=== PATIENT | male | born 2000 | race Caucasian/White ===

== ENCOUNTER 2024-05-31 12:25 | Emergency (ER) | payer MEDICAID ==
[~2024-05-31] VITALS: Ht 175.3 cm; Wt 95.0 kg
[2024-05-31 12:38] VITALS: O2SAT 97
[2024-05-31 12:50] LABS: CLARITY URINE CLEAR (CLEAR); COLOR URINE YELLOW (YELLOW); GLUCOSE URINE NEGATIVE (NEGATIVE); KETONES URINE NEGATIVE (NEGATIVE); LEUKOCYTE ESTERASE URINE NEGATIVE (NEGATIVE); NITRITE URINE NEGATIVE (NEGATIVE); OCCULT BLOOD URINE NEGATIVE (NEGATIVE); PH URINE 5.5 (4.5-8.0); PROTEIN URINE NEGATIVE (NEGATIVE); SPECIFIC GRAVITY URINE 1.022 (1.005-1.030); UROBILINOGEN URINE 0.2 E.U./dL (0.2-1.0)
[2024-05-31 13:15] LABS: CHLORIDE 105 mEq/L (98-107); POTASSIUM 3.8 mEq/L (3.5-5.1); SODIUM 138 mEq/L (136-145)
[2024-05-31 13:16] LABS: CARBON DIOXIDE 25 mEq/L (21-32)
[2024-05-31 13:17] LABS: CALCIUM 10.1 mg/dL (8.7-10.4)
[2024-05-31 13:21] LABS: CREATININE 0.8 mg/dL (0.6-1.3)
[2024-05-31 13:22] LABS: GLUCOSE 103 mg/dL (70-105); UREA NITROGEN BLOOD 12 mg/dL (9-23)
[2024-05-31 13:23] LABS: ALANINE AMINOTRANSFERASE 34 IU/L (10-49); ASPARTATE AMINOTRANSFERASE 24 IU/L (<34); BILIRUBIN DIRECT 0.1 mg/dL (<=3.0)
[2024-05-31 13:24] LABS: BILIRUBIN TOTAL 0.5 mg/dL (0.1-1.0); PROTEIN TOTAL 8.1 g/dL (6.0-8.3)
[2024-05-31 13:45] LABS: BASOPHILS % 0.4 % (0.0-2.0); EOSINOPHILS % 0.9 % (0.0-5.0); HEMATOCRIT. 47.9 % (42.0-52.0); HEMOGLOBIN. 16.6 g/dL (14.0-18.0); LYMPHOCYTES % 39.6 % (20.0-50.0); MEAN CORPUSCULAR HEMOGLOBIN 29.6 pg (28.0-32.0); MEAN CORPUSCULAR HGB CONC 34.7 g/dL (31.0-37.0); MEAN CORPUSCULAR VOLUME 85.3 fL (80.0-94.0); MEAN PLATELET VOLUME 9.2 fl (7.4-10.4); MONOCYTES % 6.4 % (2.0-8.0); NEUTROPHILS % 52.7 % (40.0-76.0); PLATELET 237 x1000/uL (130-400); RED BLOOD CELL COUNT 5.61 mill/uL (4.7-6.1); RED CELL DISTRIBUTION WIDTH 12.8 % (11.6-14.6); WHITE BLOOD COUNT 9.7 x1000/uL (4.5-11.0)
[2024-05-31] MEDS ORDERED: DOXY150T8 MT (16:48)
[2024-05-31] MEDS: DOXYCYCLINE HYCLATE 100MG CAPSULE PO ONE (17:00)
[2024-05-31] MEDS: CEFTRIAXONE SODIUM 500MG VIAL IM ONE (17:00)
[2024-05-31 17:21] VITALS: BP 141/75; PULSE 89; RESP 16; TEMP 36.78072; O2SAT 99
[2024-06-01] MEDS ORDERED: DOXY100T28 MT (13:28)
== END 2024-05-31 17:35 | disposition home or self-care (01) ==
LOC: ER 12:25
DX: N53.12 Painful ejaculation (principal)
CPT/HCPCS: 80076; 80048; 81003; 83690; 85025; 86850; 86900; 86901; 36415; 96372; 99283; J0696; Z7610

== ENCOUNTER 2024-06-01 13:06 | Emergency (ER) | payer MEDICAID ==
[~2024-06-01] VITALS: Ht 167.6 cm; Wt 104.0 kg
[~2024-06-01 13:06] MED LIST: DOXY150T8 MT
[2024-06-01 13:18] VITALS: TEMP 98.5; O2SAT 99
[2024-06-01] MEDS ORDERED: DOXY100T28 MT (13:28)
[2024-06-01 13:31] VITALS: BP 116/80; PULSE 74; RESP 16; O2SAT 99
== END 2024-06-01 13:33 | disposition home or self-care (01) ==
LOC: ER 13:06
DX: N53.12 Painful ejaculation (principal)
CPT/HCPCS: 99283

== ENCOUNTER 2024-07-19 09:05 | Emergency (ER) | payer MEDICAID ==
[~2024-07-19] VITALS: Ht 167.6 cm; Wt 106.6 kg
[~2024-07-19 09:05] MED LIST changes: +DOXY100T28 MT
[2024-07-19 09:11] VITALS: BP 153/84; PULSE 76; RESP 16; TEMP 98; O2SAT 98
[2024-07-19 11:30] LABS: CLARITY URINE CLEAR (CLEAR); COLOR URINE YELLOW (YELLOW); GLUCOSE URINE NEGATIVE (NEGATIVE); KETONES URINE NEGATIVE (NEGATIVE); LEUKOCYTE ESTERASE URINE NEGATIVE (NEGATIVE); NITRITE URINE NEGATIVE (NEGATIVE); OCCULT BLOOD URINE NEGATIVE (NEGATIVE); PH URINE 5.5 (4.5-8.0); PROTEIN URINE NEGATIVE (NEGATIVE); SPECIFIC GRAVITY URINE 1.015 (1.005-1.030); UROBILINOGEN URINE 0.2 E.U./dL (0.2-1.0)
== END 2024-07-19 10:56 | disposition home or self-care (01) ==
LOC: ER 09:05
DX: N53.12 Painful ejaculation (principal)
CPT/HCPCS: 76870; 81003; 93976; 99284

== ENCOUNTER 2025-08-22 11:48 | Emergency (ER) | payer MEDICAID ==
[~2025-08-22] VITALS: Ht 167.6 cm; Wt 100.0 kg
[2025-08-22 11:54] VITALS: O2SAT 99
[2025-08-22] MEDS: IBUPROFEN 600MG TABLET PO ONE (12:51)
[2025-08-22 13:01] LABS: CLARITY URINE CLEAR (CLEAR); COLOR URINE YELLOW (YELLOW); GLUCOSE URINE NEGATIVE (NEGATIVE); KETONES URINE NEGATIVE (NEGATIVE); LEUKOCYTE ESTERASE URINE NEGATIVE (NEGATIVE); NITRITE URINE NEGATIVE (NEGATIVE); OCCULT BLOOD URINE NEGATIVE (NEGATIVE); PH URINE 5.5 (4.5-8.0); PROTEIN URINE NEGATIVE (NEGATIVE); SPECIFIC GRAVITY URINE 1.006 (1.005-1.030); UROBILINOGEN URINE 0.2 E.U./dL (0.2-1.0)
[2025-08-22 13:19] LABS: BASOPHILS % 0.3 % (0.0-2.0); EOSINOPHILS % 0.6 % (0.0-5.0); HEMATOCRIT. 45.3 % (42.0-52.0); HEMOGLOBIN. 15.6 g/dL (14.0-18.0); LYMPHOCYTES % 33.5 % (20.0-50.0); MEAN PLATELET VOLUME 9.1 fl (7.4-10.4); MONOCYTES % 5.9 % (2.0-8.0); NEUTROPHILS % 59.7 % (40.0-76.0); PLATELET 222 x1000/uL (130-400); RED BLOOD CELL COUNT 5.33 mill/uL (4.7-6.1); RED CELL DISTRIBUTION WIDTH 12.8 % (11.6-14.6)
[2025-08-22 13:36] LABS: CREATININE 0.8 mg/dL (0.6-1.3); UREA NITROGEN BLOOD 9 mg/dL (9-23)
[2025-08-22 13:37] LABS: PROTEIN TOTAL 7.5 g/dL (6.0-8.3)
[2025-08-22 13:38] LABS: ASPARTATE AMINOTRANSFERASE 17 IU/L (<34); BILIRUBIN DIRECT 0.2 mg/dL (<=3.0)
[2025-08-22 13:39] LABS: BILIRUBIN TOTAL 0.5 mg/dL (0.1-1.0)
[2025-08-22] MEDS ORDERED: IBUP-2437 MT (15:39)
[2025-08-22 15:50] VITALS: BP 150/77; PULSE 77; RESP 18; TEMP 36.7; O2SAT 99
[2025-08-26 04:12] LABS: HSV TYPE 2 SPECIFIC AB IGG Non Reactive (Non Reactive)
== END 2025-08-22 16:08 | disposition home or self-care (01) ==
LOC: ER 11:48
DX: R10.20 Pelvic and perineal pain unspecified side (principal); F17.200 Nicotine dependence, unspecified, uncomplicated; F12.90 Cannabis use, unspecified, uncomplicated
CPT/HCPCS: 36415; 76870; 80048; 80076; 81003; 85025; 86592; 86695; 86696; 87491; 87591; 93976; 99284